=== PATIENT | male | born 1965 | race Asian ===

== ENCOUNTER 2016-03-25 10:26 | Inpatient (IN) | payer MEDICARE, MEDICAID ==
[~2016-03-25] VITALS: Ht 165.1 cm; Wt 70.4 kg
[2016-03-25] MEDS ORDERED: SODIUM CHLORIDE 0.9% 10ML VIAL ONE (11:22)
[2016-03-25] MEDS ORDERED: IOHEXOL-350 100 ML BOTTLE ONE (11:22)
[2016-03-25] MEDS ORDERED: NITROGLYCERIN OINT 1GM/INCH UDPKT TD STA (12:09)
[2016-03-25] MEDS ORDERED: SODIUM CHLORIDE 0.9% 1000ML BAG (SEPSIS BOLUS) IV ONE (12:15)
[2016-03-25] MEDS ORDERED: KETOROLAC 30MG/ML VIAL IV ONE (12:15)
[2016-03-25] MEDS ORDERED: ASPIRIN 81MG EC TABLET PO ONE (12:15)
[2016-03-25] MEDS ORDERED: ACETAMINOPHEN 325MG TABLET PO ONE (12:30)
[2016-03-25 13:25] LABS: HEMATOCRIT. 35.3 % (42.0-52.0); HEMOGLOBIN. 11.8 g/dL (14.0-18.0); MEAN CORPUSCULAR HEMOGLOBIN 30.7 pg (28.0-32.0); MEAN CORPUSCULAR HGB CONC 33.4 g/dL (31.0-37.0); MEAN CORPUSCULAR VOLUME 91.7 fL (80.0-94.0); MEAN PLATELET VOLUME 8.9 fl (7.4-10.4); PLATELET 100 x1000/uL (130-400); RED BLOOD CELL COUNT 3.85 mill/uL (4.7-6.1); RED CELL DISTRIBUTION WIDTH 13.7 % (11.6-14.6); WHITE BLOOD COUNT 12.7 x1000/uL (4.5-11.0)
[2016-03-25 13:28] LABS: DIFFERENTIAL COMMENT 1
[2016-03-25 13:35] LABS: ALBUMIN 3.2 g/dL (3.4-5.0); ANION GAP 12; CALCIUM 8.1 mg/dL (8.5-10.1); CARBON DIOXIDE 26 mEq/L (21-32); CHLORIDE 104 mEq/L (98-107); INDEX HEMOLYSI 1 (1-3); INDEX ICTERIC 1 (1-4); INDEX LIPEMIC 1 (1-3); UREA NITROGEN BLOOD 10 mg/dL (7-21)
[2016-03-25 13:37] LABS: D-DIMER 0.78 mg/L FEU (<0.50); INR 1.1; PARTIAL THROMBOPLASTIN TIME 33.8 sec (24.0-34.0); PROTHROMBIN TIME 11.1 sec
[2016-03-25 13:42] LABS: ALANINE AMINOTRANSFERASE 25 IU/L (13-61); NT PRO B-TYPE NATRIURETIC PEP 508 pg/mL (5-125); TROPONIN I < 0.02 ng/mL (0.00-0.04); eGFR > 60 mL/min (>60)
[2016-03-25 14:06] LABS: PLATELET ESTIMATE SLIGHTLY DECREASED
[2016-03-25] MEDS ORDERED: LEVOFLOXACIN 750MG PREMIX 150 ML IV ONE (14:15)
[2016-03-25 14:55] LABS: CLARITY URINE CLEAR (CLEAR); COLOR URINE YELLOW (YELLOW); GLUCOSE URINE NEGATIVE (NEGATIVE); KETONES URINE TRACE (NEGATIVE); LEUKOCYTE ESTERASE URINE 3+ (NEGATIVE); NITRITE URINE NEGATIVE (NEGATIVE); OCCULT BLOOD URINE 1+ (NEGATIVE); PROTEIN URINE NEGATIVE (NEGATIVE); SPECIFIC GRAVITY URINE 1.003 (1.005-1.030)
[2016-03-25] MEDS ORDERED: CLONIDINE 0.1MG TABLET PO PRN (15:30)
[2016-03-25] MEDS ORDERED: ONDANSETRON HCL 4MG/2ML VIAL IV PRN (15:30)
[2016-03-25] MEDS ORDERED: MAGNESIUM/ALUMINUM HYDROXIDE/SIMETHICONE 30ML UDC PO PRN (15:30)
[2016-03-25] MEDS ORDERED: ACETAMINOPHEN 325MG TABLET PO PRN (15:30)
[2016-03-25] MEDS ORDERED: LEVOFLOXACIN 500MG PREMIX 100 ML IV SCH (15:30)
[2016-03-25 15:37] LABS: BACTERIA URINE TRACE; RBC URINE 0-2 /hpf (0-2); SQUAMOUS EPITHELIAL CELL URINE RARE /lpf (RARE/1+)
[2016-03-25 15:38] LABS: WBC URINE 50-100 /hpf (0-2)
[2016-03-25] MEDS ORDERED: ENOXAPARIN 40MG/0.4ML SYR SUBCUT NR (18:05)
[2016-03-25 23:18] LABS: CREATINE KINASE 166 IU/L (39-308); INDEX HEMOLYSI 1 (1-3); TROPONIN I < 0.02 ng/mL (0.00-0.04)
[2016-03-26] VITALS (7 sets, daily range): BP systolic 98–118; BP diastolic 50–112
[2016-03-26] MEDS ORDERED: TAMS0.4C31 PO (02:14)
[2016-03-26] MEDS ORDERED: Ibuprofen PO (02:14)
[2016-03-26] MEDS ORDERED: Omega PO (02:14)
[2016-03-26] MEDS ORDERED: [UNRECOGNIZED DRUG - OTHER] (02:14)
[2016-03-26] MEDS ORDERED: Prilosec PO (02:14)
[2016-03-26] MEDS ORDERED: ENAL20TA PO (02:14)
[2016-03-26] MEDS ORDERED: vitamins PO (02:14)
[2016-03-26] MEDS ORDERED: INFLUENZA VIRUS VACCINE 0.5ML SYR IM ONE (03:45)
[2016-03-26] MEDS ORDERED: PNEUMOCOCCAL 23-VAL P-SAC VAC 0.5 ML IM ONE (03:45)
[2016-03-26 06:59] LABS: BASOPHILS % 0.3 % (0.0-2.0); HEMATOCRIT. 37.1 % (42.0-52.0); HEMOGLOBIN. 12.6 g/dL (14.0-18.0); LYMPHOCYTES % 8.7 % (20.0-50.0); MEAN CORPUSCULAR HEMOGLOBIN 30.9 pg (28.0-32.0); MEAN CORPUSCULAR HGB CONC 33.9 g/dL (31.0-37.0); MEAN CORPUSCULAR VOLUME 91.2 fL (80.0-94.0); MEAN PLATELET VOLUME 9.5 fl (7.4-10.4); MONOCYTES % 10.4 % (2.0-8.0); NEUTROPHILS % 80.6 % (40.0-76.0); PLATELET 105 x1000/uL (130-400); RED BLOOD CELL COUNT 4.07 mill/uL (4.7-6.1); RED CELL DISTRIBUTION WIDTH 13.9 % (11.6-14.6); WHITE BLOOD COUNT 8.4 x1000/uL (4.5-11.0)
[2016-03-26 07:13] LABS: ALANINE AMINOTRANSFERASE 34 IU/L (13-61); ALBUMIN 2.9 g/dL (3.4-5.0); ANION GAP 15; CARBON DIOXIDE 22 mEq/L (21-32); CHLORIDE 109 mEq/L (98-107); CREATINE KINASE 141 IU/L (39-308); HDL CHOLESTEROL 44 mg/dL (40-59); INDEX HEMOLYSI 1 (1-3); INDEX ICTERIC 1 (1-4); INDEX LIPEMIC 1 (1-3); LDL CHOLESTEROL 79 mg/dL (5-100); TRIGLYCERIDE 68 mg/dL (0-150); TROPONIN I < 0.02 ng/mL (0.00-0.04); UREA NITROGEN BLOOD 14 mg/dL (7-21); eGFR > 60 mL/min (>60)
[2016-03-26] MEDS: ASPIRIN 81MG EC TABLET PO SCH (08:32)
[2016-03-26] MEDS: ENOXAPARIN 40MG/0.4ML SYR SUBCUT SCH (08:33)
[2016-03-26] MEDS: LEVOFLOXACIN 500MG PREMIX 100 ML IV SCH (15:54)
[2016-03-27] VITALS: BP 106/68
[2016-03-27 04:00] VITALS: BP 113/69
[2016-03-27 08:00] VITALS: BP_SYST 112; BP_SYST 120; BP_SYST 98; BP_DIAS 64; BP_DIAS 69; BP_DIAS 79
[2016-03-27] MEDS: ASPIRIN 81MG EC TABLET PO SCH (09:18)
[2016-03-27] MEDS: ENOXAPARIN 40MG/0.4ML SYR SUBCUT SCH (09:19)
[2016-03-27] MEDS ORDERED: LACTULOSE 20G/30ML UDC PO PRN (10:15)
[2016-03-27] MEDS ORDERED: DOCUSATE SODIUM 100MG CAPSULE PO SCH (10:15)
[2016-03-27 12:00] VITALS: BP 105/64
[2016-03-27] MEDS: LEVOFLOXACIN 500MG PREMIX 100 ML IV SCH (14:26)
[2016-03-27 15:45] VITALS: BP 105/64
== END 2016-03-27 16:15 | disposition home or self-care (01) | DRG 872 ==
LOC: EDBD 10:46 → ER 10:46 → SUPCPDRO 15:14 → 7EST 16:44
PROVIDERS: ADMIT Hospitalist; ATTEND Hospitalist
DX: A41.9 Sepsis, unspecified organism (principal); N39.0 Urinary tract infection, site not specified; G91.9 Hydrocephalus, unspecified; R07.89 Other chest pain; I10 Essential (primary) hypertension; G80.9 Cerebral palsy, unspecified; Z98.2 Presence of cerebrospinal fluid drainage device
CPT/HCPCS: 36415; 70450; 71010; 71275; 80053; 80061; 81001; 82550; 83605; 83880; 84145; 84484; 85025; 85379; 85610; 85730; 86850; 86900; 87040; 87077; 87086; 87186; 87804; 90686; 90732; 93005; 93306; 96361; 96365; 96366; 96375; 99285; A4216; J1650; J1885; J1956; J7030; J7040; Q9967

== ENCOUNTER 2022-10-18 17:45 | Emergency (ER) | payer MEDICARE, MEDICAID ==
[~2022-10-18] VITALS: Ht 165.1 cm; Wt 82.0 kg
[~2022-10-18 17:45] MED LIST: ENAL-79 PO; Ibuprofen PO; Omega PO; Prilosec PO; TAMS0.4C31 PO; vitamins PO
[2022-10-18 17:55] VITALS: BP 130/80; PULSE 102; RESP 18; TEMP 97.9; O2SAT 92
[2022-10-18 20:00] LABS: BASOPHILS % 0.3 % (0.0-2.0); EOSINOPHILS % 0.8 % (0.0-5.0); HEMATOCRIT. 39.6 % (42.0-52.0); HEMOGLOBIN. 13.5 g/dL (14.0-18.0); LYMPHOCYTES % 25.1 % (20.0-50.0); MEAN CORPUSCULAR HEMOGLOBIN 30.4 pg (28.0-32.0); MEAN CORPUSCULAR HGB CONC 34.1 g/dL (31.0-37.0); MEAN CORPUSCULAR VOLUME 89.2 fL (80.0-94.0); MEAN PLATELET VOLUME 9.6 fl (7.4-10.4); MONOCYTES % 9.4 % (2.0-8.0); NEUTROPHILS % 64.4 % (40.0-76.0); PLATELET 161 x1000/uL (130-400); RED BLOOD CELL COUNT 4.44 mill/uL (4.7-6.1); RED CELL DISTRIBUTION WIDTH 14.1 % (11.6-14.6); WHITE BLOOD COUNT 7.3 x1000/uL (4.5-11.0)
[2022-10-18] MEDS ORDERED: SODIUM CHLORIDE 0.9% 1,000 ML IV ONE (20:00)
[2022-10-18 20:07] LABS: CHLORIDE 107 mEq/L (98-107); INDEX HEMOLYSI 1 (1-3); INDEX ICTERIC 1 (1-4); INDEX LIPEMIC 1 (1-3); POTASSIUM 3.4 mEq/L (3.5-5.1); PROTHROMBIN TIME 10.9 sec (9.6-11.0); SODIUM 137 mEq/L (136-145)
[2022-10-18 20:17] LABS: ALANINE AMINOTRANSFERASE 83 IU/L (13-61); ASPARTATE AMINOTRANSFERASE 30 IU/L (15-37); BILIRUBIN TOTAL 0.9 mg/dL (0.1-1.0); CALCIUM 8.4 mg/dL (8.5-10.1); CARBON DIOXIDE 29 mEq/L (21-32); GLUCOSE 119 mg/dL (70-105); NT PRO B-TYPE NATRIURETIC PEP 30 pg/mL (5-125); PROTEIN TOTAL 7.7 g/dL (6.0-8.3); TROPONIN I HIGH SENSITIVITY 5 ng/L (<78); UREA NITROGEN BLOOD 12 mg/dL (7-21)
[2022-10-19 00:48] LABS: CLARITY URINE CLEAR (CLEAR); COLOR URINE YELLOW (YELLOW); GLUCOSE URINE NEGATIVE (NEGATIVE); KETONES URINE TRACE (NEGATIVE); LEUKOCYTE ESTERASE URINE NEGATIVE (NEGATIVE); NITRITE URINE NEGATIVE (NEGATIVE); OCCULT BLOOD URINE 2+ (NEGATIVE); PROTEIN URINE NEGATIVE (NEGATIVE); SPECIFIC GRAVITY URINE 1.014 (1.005-1.030)
[2022-10-19 00:51] LABS: BACTERIA URINE NONE SEEN; RBC URINE 15-25 /hpf (0-2); SQUAMOUS EPITHELIAL CELL URINE NONE SEEN /lpf (RARE/1+); YEAST URINE NONE SEEN
[2022-10-19] MEDS ORDERED: AMOX1TAB16 MT (01:18)
== END 2022-10-19 03:12 | disposition home or self-care (01) ==
LOC: ER 17:45
DX: G80.9 Cerebral palsy, unspecified (principal); R53.1 Weakness; I10 Essential (primary) hypertension; Z98.890 Other specified postprocedural states
CPT/HCPCS: 99285; 70450; 71045; 80053; 83880; 83605; 85025; 85610; 87040; 84484; 36415; 72170; 74176; 93005; 81003; J7030